=== PATIENT | female | born 1985 | race Caucasian/White ===

== ENCOUNTER → 2017-07-15 16:33 | Outpatient (CLI) | payer OTHER, SELFPAY ==
[2017-07-15 16:52] LABS: Basophils % 0.2 % (0.1-2.0); Eosinophils # 0.1 K/mm3 (0.0-0.4); Eosinophils % 1.2 % (0.1-12.0); Hematocrit 37.3 % (37.0-47.0); Hemoglobin 12.6 g/dL (12.2-16.2); Lymphocytes # 1.2 K/mm3 (0.7-4.5); Lymphocytes % 22.3 K/mm3 (10-50); Mean Corpuscular HGB Conc 33.8 g/dL (31.8-35.4); Mean Corpuscular Hemoglobin 32.1 pg (27.0-31.2); Mean Platelet Volume 8.6 fl (7.4-10.4); Monocytes # 0.3 K/mm3 (0.1-1.0); Monocytes % 4.6 % (1.7-9.3); Neutrophils % 71.7 % (37.0-80.0); Platelet Count 246 K/mm3 (142-424); Red Blood Count 3.93 M/mm3 (4.20-5.40); Red Cell Distribution Width 13.2 % (11.5-17.5); White Blood Count 5.5 K/mm3 (4.8-10.8)
[2017-07-15 18:03] LABS: Alanine Aminotransferase 21 U/L (12-78); Albumin/Globulin Ratio 1.3 (1.1-1.8); Alkaline Phosphatase 62 U/L (46-116); Anion Gap 10.1 mEq/L (5-15); Aspartate Amino Transferase 11 U/L (15-37); Bilirubin,Total 0.2 mg/dL (0.2-1.0); Blood Urea Nitrogen 12 mg/dL (7-18); Calcium 8.6 mg/dL (8.5-10.1); Carbon Dioxide 32 mmol/L (21.0-32.0); Chloride 105 mmol/L (98-107); Creatinine,Serum 0.72 mg/dL (0.55-1.02); Estimated Glomerular Filt Rate 96 ml/min (>60); GFR (African American) 116 ML/MIN (>60); Globulin 3.1 gm/dl (1.3-3.2); Glucose 105 mg/dL (74-106); Potassium 4.1 mmoL/L (3.5-5.1); Sodium 143 mmol/L (136-145); Total Protein,Serum 7.1 gm/dL (6.4-8.2)
[2017-07-15 18:14] LABS: HCG Qualitative, Serum Negative (Negative)
== END ==
PROVIDERS: PCP Internal Medicine Adolescent Medicine; Visit Provider Nurse Practitioner Obstetrics & Gynecology
DX: N92.0 Excessive and frequent menstruation with regular cycle (principal); Z01.818 Encounter for other preprocedural examination
CPT/HCPCS: 36415; 80053; 84703; 85025

== ENCOUNTER 2017-07-18 08:28 | Day surgery (SDC) | payer OTHER, SELFPAY ==
[2017-07-15 16:02] VITALS: BMI 22.8
[2017-07-18] VITALS (12 sets, daily range): BP systolic 116–147; BP diastolic 76–105; PULSE 69–91; RESP 13–18; TEMP 36.1–43; O2SAT 93–100
--- NOTE | 2017-07-18 09:32 | P.PN_ITS ---
[facility] Anesthesia Checklist - Patient Identification Patient Identification: Arm Band, Verbal (Name & ) - Structural Data Admitted From: Home Planned Operative Procedure/s: dand c, salpingectomy Consent for Planned Operative Procedure(s) Verified: Yes Verified Documents: Surgical Consent - Chart Verification Results Verified: CBC, BMP - Additional verifications Patient : No Anesthesia Reactions: No Hx Blood Transfusions: No Blood Transfusion Reaction: No Cephalosporin Allergy: No Previous Colonoscopy: No - Cardiovascular Assessment Heart Sounds: S1 & S2 Pulse Strength: Baseline Pulse Rhythm: Regular Peripheral Edema: No - Airway Assessment C-Spine Mobility Assessed: Yes TMJ Mobility Assessed: Yes Dentition: Good Dentition - Neurological Assessment Level of Consciousness: Awake, Alert, Appropriate Hx Seizures: No Numbness or tingling in extremities: No - Anesthesia Plan Anesthesia Risk discussed: Yes Anesthesia Plan: Verified ASA Class: I Anesthesia Type: General [facility] Anesthesia HX Medical History: Denies:: Cancer, Diabetes Mellitus Type 1, Diabetes Mellitus Type 2, MRSA Other Surgeries: Yes: No Previous Surgery Amputation: No Fractures: No *Family Hx:: Cancer, Coronary Artery Disease, Diabetes, Heart Attack, Hyperlipidemia, Hypertension
--- NOTE | 2017-07-18 10:42 | HMH.OPNOTE ---
Date of procedure: 07/18/17 Pre-op Diagnosis:: Desire for sterilization, menorrhagia, removal of IUD Post-op diagnosis:: same Procedure performed:: Laparoscopic bilateral salpingectomy, hysteroscopy, D&C, removal of IUD Surgeon:: Ivan Holliday MD INSULATION ESTIMATOR:: Tom Shookty Anesthesia: GETA Estimated blood loss (mL): 50 Clinical Note:: She is a 31-year-old lady who complains of extremely heavy periods. She also expressed desire for sterilization. The risks and benefits of surgery as well as the irreversibility of bilateral salpingectomy were discussed with the patient prior to surgery. Operative findings:: She had a normal-appearing pelvis. The uterus is anteverted normal in shape and size. The tubes were followed to their fimbriated end appeared normal. The ovaries appeared normal. The appendix was visualized appeared normal. The upper abdomen appeared normal as well. The deep pelvis appear normal. At the time of hysteroscopy the immature cavity appeared somewhat erythematous possibly consistent with chronic endometritis. Operative note:: She was taken to the operating room where general anesthesia was found be adequate. She was prepped and draped in normal sterile fashion in the semilithotomy position. A weighted speculum was placed in vagina and the anterior lip of the cervix was grasped with a tenaculum. I then grasped the IUD strings and was able to easily remove the IUD. I then dilated the cervix to approximately 3 mm and inserted a Heather uterine manipulator into the uterine cavity. I then changed gloves and injected 10 cc of 0.5% ropivacaine around the umbilicus. I made a small incision within the umbilicus and inserted a Veress needle into the abdominal cavity. The abdominal cavity was then insufflated with carbon dioxide gas to a pressure of 20 mmHg. I then inserted a 5 mm trocar under direct vision. I injected through and through the pubic hairline, made a small incision here and inserted a 8 mm trocar under direct vision. I identified the inferior epigastric arteries on the left side, went lateral to these and injected through and through. I inserted a 5 trocar here under direct vision. The right tube was then grasped close to the cornea and cauterized across at the cornua. I then grasped the distal end of the right tube and using harmonic scalpel I cut across the mesosalpinx removing the tube. This is simply performed on the patient's left side. The tubes were removed through the 8 mm trocar site. I then let the gas out of the abdomen once again assured hemostasis. The secondary trochars were then removed under direct vision and the sites were hemostatic. The gas was let out of the abdomen completely and the primary trocar was removed. The 5 mm trocar sites were then closed with subcuticular 4-0 Monocryl suture. The 8 mm trocar site was closed with deep 2-0 Vicryl suture followed by interrupted septic therefore Monocryl suture. Sterile dressings were applied. The patient was then placed in lithotomy position and a weighted speculum was placed in the vagina. The anterior lip of the cervix was grasped with a tenaculum and a hysteroscope was inserted into the uterine cavity. The findings are as previous dictated. We then sounded the uterus and the length of the uterus was found to be 7 cm. The endometrial cavity was 5 cm. The NovaSure device was then placed within the uterine cavity and the width was 3.6 cm. These values were placed into the NovaSure device. It was run through its program. I then further inspected the endometrial cavity and it seemed to be completely charred. I injected 30 cc of 0.5% ropivacaine at the 3:00, 5:00, 7:00, and 9:00 positions of the cervix. The patient tolerated the procedure well and was taken to the recovery room in excellent condition. All sponge instrument and needle counts were correct. The estimated was was less than 50 cc. Condition: stable Disposition: PACU Specimens::
--- NOTE | 2017-07-18 10:49 | P.OP_ITS ---
Date of procedure: 07/18/17 Pre-op Diagnosis:: Desire for sterilization, menorrhagia, removal of IUD Post-op diagnosis:: same Procedure performed:: Laparoscopic bilateral salpingectomy, hysteroscopy, D&C, removal of IUD Surgeon:: Ivan Holliday MD MARKETING PROJECT MANAGER:: Tom Shookty Anesthesia: GETA Estimated blood loss (mL): 50 Clinical Note:: She is a 31-year-old lady who complains of extremely heavy periods. She also expressed desire for sterilization. The risks and benefits of surgery as well as the irreversibility of bilateral salpingectomy were discussed with the patient prior to surgery. Operative findings:: She had a normal-appearing pelvis. The uterus is anteverted normal in shape and size. The tubes were followed to their fimbriated end appeared normal. The ovaries appeared normal. The appendix was visualized appeared normal. The upper abdomen appeared normal as well. The deep pelvis appear normal. At the time of hysteroscopy the immature cavity appeared somewhat erythematous possibly consistent with chronic endometritis. Operative note:: She was taken to the operating room where general anesthesia was found be adequate. She was prepped and draped in normal sterile fashion in the semilithotomy position. A weighted speculum was placed in vagina and the anterior lip of the cervix was grasped with a tenaculum. I then grasped the IUD strings and was able to easily remove the IUD. I then dilated the cervix to approximately 3 mm and inserted a Heather uterine manipulator into the uterine cavity. I then changed gloves and injected 10 cc of 0.5% ropivacaine around the umbilicus. I made a small incision within the umbilicus and inserted a Veress needle into the abdominal cavity. The abdominal cavity was then insufflated with carbon dioxide gas to a pressure of 20 mmHg. I then inserted a 5 mm trocar under direct vision. I injected through and through the pubic hairline, made a small incision here and inserted a 8 mm trocar under direct vision. I identified the inferior epigastric arteries on the left side, went lateral to these and injected through and through. I inserted a 5 trocar here under direct vision. The right tube was then grasped close to the cornea and cauterized across at the cornua. I then grasped the distal end of the right tube and using harmonic scalpel I cut across the mesosalpinx removing the tube. This is simply performed on the patient's left side. The tubes were removed through the 8 mm trocar site. I then let the gas out of the abdomen once again assured hemostasis. The secondary trochars were then removed under direct vision and the sites were hemostatic. The gas was let out of the abdomen completely and the primary trocar was removed. The 5 mm trocar sites were then closed with subcuticular 4-0 Monocryl suture. The 8 mm trocar site was closed with deep 2- 0 Vicryl suture followed by interrupted septic therefore Monocryl suture. Sterile dressings were applied. The patient was then placed in lithotomy position and a weighted speculum was placed in the vagina. The anterior lip of the cervix was grasped with a tenaculum and a hysteroscope was inserted into the uterine cavity. The findings are as previous dictated. We then sounded the uterus and the length of the uterus was found to be 7 cm. The endometrial cavity was 5 cm. The NovaSure device was then placed within the uterine cavity and the width was 3.6 cm. These values were placed into the NovaSure device. It was run through its program. I then further inspected the endometrial cavity and it seemed to be completely charred. I injected 30 cc of 0.5% ropivacaine at the 3:00, 5:00, 7:00, and 9:
--- NOTE | 2017-07-18 10:55 | HMH.ANESI ---
[facility] Anesthesia Record Part I Intake, IV Amount: 800 Estimated blood loss (mL): 49 Urine output (mL): 0 Blood Products used (#): none Blood Pressure: 134/94 SaO2: 99 Pulse Rate: 80 Respiratory Rate: 18 Temperature: 98.0 F Patient is:: Drowsy, Stable Stable to PACU at:: 10:52
--- NOTE | 2017-07-18 10:56 | P.PN_ITS ---
[facility] Anesthesia Record Part II Discharge Time: 11:22 Destination: Surgical Day Care (OP Surgery) PACU nurse assessment reviewed?: Yes Patient Condition:: Good Anesthesia Complications:: None
== END 2017-07-18 12:15 | disposition home or self-care (01) ==
LOC: OR 08:30
PROVIDERS: Family Provider Internal Medicine Adolescent Medicine; PCP Internal Medicine Adolescent Medicine; Visit Provider Nurse Practitioner Obstetrics & Gynecology
PROC: (CPT 58661; principal; 2017-07-18 10:15)
PROC: 0U5B8ZZ Destruction of Endometrium, Via Natural or Artificial Opening Endoscopic (ICD-10-PCS; CPT 58563; 2017-07-18 10:15)
DX: N92.0 Excessive and frequent menstruation with regular cycle (principal); Z30.2 Encounter for sterilization; Z30.432 Encounter for removal of intrauterine contraceptive device
CPT/HCPCS: 58661; 58558; 58562; J0131; J2405; J2710

== ENCOUNTER → 2019-05-05 09:23 | Outpatient (CLI) | payer OTHER, SELFPAY ==
--- NOTE | 2019-05-05 09:43 | XR_ITS ---
PROCEDURE: XR COCCYX 2V CLINICAL INDICATION: FALL Posttraumatic pain COMPARISON: No exams were available for comparison FINDINGS: There is anterior angulation of the tip of the coccyx which could be posttraumatic. No other significant anomalies are evident. IMPRESSION: Anterior angulation of the tip of the coccyx by approximately 90 degrees. This could be posttraumatic or developmental Dictated by: Alton Kiran MD 05/05/2019 16:42 Electronically signed by Alton Kiran MD in [place] 05/05/2019 16:42
== END ==
PROVIDERS: PCP Internal Medicine Adolescent Medicine; Visit Provider Orthopaedic Surgery
DX: M53.3 Sacrococcygeal disorders, not elsewhere classified (principal)
CPT/HCPCS: 72220

== ENCOUNTER → 2019-11-02 16:59 | Outpatient (CLI) | payer OTHER, SELFPAY ==
[2019-11-02 19:59] LABS: Thyroid Stimulating Hormone 0.44 uIU/mL (0.465-4.68)
[2019-11-04 09:13] LABS: Vitamin B12 1076 pg/mL (232-1245)
== END ==
PROVIDERS: Visit Provider Nurse Practitioner Family
DX: K12.1 Other forms of stomatitis (principal)
CPT/HCPCS: 36415; 82607; 84443

== ENCOUNTER → 2019-11-04 08:43 | Outpatient (CLI) | payer OTHER, SELFPAY ==
[2019-11-04 11:14] LABS: Free T4 (Free Thyroxine) 0.87 ng/dl (0.78-2.19)
[2019-11-04 11:27] LABS: Thyroid Stimulating Hormone 0.89 uIU/mL (0.465-4.68)
[2019-11-05 11:16] LABS: Thyroid Peroxidase Antibodies <9 IU/mL (0-34)
[2019-11-05 11:18] LABS: Triiodothyronine (T3) Free 2.7 pg/mL (2.0-4.4)
[2019-11-06 09:27] LABS: Thyroid Stimulating Immunoglob <0.10 IU/L (0.00-0.55)
== END ==
PROVIDERS: Visit Provider Otolaryngology
DX: E05.90 Thyrotoxicosis, unspecified without thyrotoxic crisis or storm (principal)
CPT/HCPCS: 36415; 84439; 84443; 84445; 84481; 86376

== ENCOUNTER → 2019-11-23 15:51 | Outpatient (POV) | payer OTHER, SELFPAY | PROVIDERS: PCP Family Medicine; Visit Provider Physician Assistant | DX: Z00.00 Encounter for general adult medical examination without abnormal findings (principal) ==

== ENCOUNTER → 2020-01-25 11:09 | Outpatient (POV) | payer OTHER, SELFPAY | PROVIDERS: Visit Provider Dermatology | DX: Z00.00 Encounter for general adult medical examination without abnormal findings (principal) ==

== ENCOUNTER → 2020-02-28 09:01 | Outpatient (CLI) | payer OTHER, SELFPAY ==
[2020-02-28 09:25] LABS: Basophils % 0.3 % (0.1-2.0); Eosinophils % 0.8 % (0.1-12.0); Hematocrit 38.5 % (37.0-47.0); Hemoglobin 12.8 g/dL (12.2-16.2); Lymphocytes # 1.4 K/mm3 (0.7-4.5); Lymphocytes % 25.6 % (10-50); Mean Corpuscular HGB Conc 33.2 g/dL (31.8-35.4); Mean Corpuscular Hemoglobin 32.5 pg (27.0-31.2); Mean Corpuscular Volume 97.8 fl (81-99); Mean Platelet Volume 8.3 fl (7.4-10.4); Monocytes # 0.2 K/mm3 (0.1-1.0); Monocytes % 4.4 % (1.7-9.3); Neutrophils # 3.6 K/mm3 (1.8-7.8); Neutrophils % 68.9 % (37.0-80.0); Platelet Count 207 K/mm3 (142-424); Red Blood Count 3.94 M/mm3 (4.20-5.40); Red Cell Distribution Width 13.1 % (11.5-17.5); White Blood Count 5.3 K/mm3 (4.8-10.8)
[2020-02-28 10:25] LABS: Alanine Aminotransferase 12 U/L (12-78); Albumin Level 4.4 g/dl (3.5-5.0); Albumin/Globulin Ratio 1.7 (1.1-1.8); Alkaline Phosphatase 45 U/L (38-126); Anion Gap 10.4 mEq/L (5-15); Aspartate Amino Transferase 22 U/L (14-36); Bilirubin,Total 0.3 mg/dl (0.2-1.3); Blood Urea Nitrogen 9 mg/dl (7-17); Calcium 9.7 mg/dl (8.4-10.2); Carbon Dioxide 31 mmol/L (22.0-30.0); Chloride 101 mmol/L (98-107); Chol/HDL Ratio 2.8 (1-3.5); Cholesterol 155 mg/dl (140-200); Estimated Glomerular Filt Rate 143 ml/min (>60); GFR (African American) 173 ML/MIN (>60); Globulin 2.6 g/dL (1.3-3.2); Glucose 103 mg/dl (74-100); HDL Cholesterol 56 mg/dl (40-60); Potassium 4.4 mmoL/L (3.5-5.1); Sodium 138 mmol/L (136-145); Triglycerides 69 mg/dl (30-150); VLDL Cholesterol 14 mg/dL (0-40)
[2020-02-28 10:37] LABS: Direct LDL Cholesterol 85.04 mg/dL (100-129)
[2020-02-28 11:56] LABS: HCG Qualitative, Serum Negative (Negative)
== END ==
PROVIDERS: Visit Provider Dermatology
DX: L70.0 Acne vulgaris (principal); Z79.899 Other long term (current) drug therapy
CPT/HCPCS: 36415; 80053; 80061; 84703; 85025

== ENCOUNTER → 2020-02-29 13:52 | Outpatient (POV) | payer OTHER, SELFPAY | PROVIDERS: Visit Provider Dermatology | DX: Z00.00 Encounter for general adult medical examination without abnormal findings (principal) ==

== ENCOUNTER → 2020-04-03 09:05 | Outpatient (CLI) | payer OTHER, SELFPAY ==
[2020-04-03 11:01] LABS: Chloride 101 mmol/L (98-107); Sodium 137 mmol/L (136-145)
[2020-04-03 11:02] LABS: Potassium 4.3 mmoL/L (3.5-5.1)
[2020-04-03 11:04] LABS: Alanine Aminotransferase 14 U/L (12-78); Albumin Level 4.5 g/dl (3.5-5.0); Albumin/Globulin Ratio 1.7 (1.1-1.8); Alkaline Phosphatase 39 U/L (38-126); Anion Gap 13.3 mEq/L (5-15); Aspartate Amino Transferase 25 U/L (14-36); Bilirubin,Total 0.3 mg/dl (0.2-1.3); Blood Urea Nitrogen 16 mg/dl (7-17); Carbon Dioxide 27 mmol/L (22.0-30.0); Cholesterol 218 mg/dl (140-200); Estimated Glomerular Filt Rate 116 ml/min (>60); GFR (African American) 140 ML/MIN (>60); Globulin 2.6 g/dL (1.3-3.2); Total Protein,Serum 7.1 g/dl (6.3-8.2); Triglycerides 80 mg/dl (30-150); VLDL Cholesterol 16 mg/dL (0-40)
[2020-04-03 11:05] LABS: Calcium 9.4 mg/dl (8.4-10.2); Chol/HDL Ratio 4.4 (1-3.5); Glucose 88 mg/dl (74-100); HDL Cholesterol 50 mg/dl (40-60)
[2020-04-03 11:15] LABS: Direct LDL Cholesterol 134.26 mg/dL (100-129)
[2020-04-03 11:30] LABS: Basophils % 0.6 % (0.1-2.0); Eosinophils % 0.7 % (0.1-12.0); Hemoglobin 13.2 g/dL (12.2-16.2); Lymphocytes # 1.4 K/mm3 (0.7-4.5); Lymphocytes % 28.7 % (10-50); Mean Corpuscular HGB Conc 33.8 g/dL (31.8-35.4); Mean Corpuscular Hemoglobin 32.1 pg (27.0-31.2); Mean Corpuscular Volume 94.9 fl (81-99); Mean Platelet Volume 7.8 fl (7.4-10.4); Monocytes # 0.2 K/mm3 (0.1-1.0); Monocytes % 4.7 % (1.7-9.3); Neutrophils # 3.1 K/mm3 (1.8-7.8); Neutrophils % 65.4 % (37.0-80.0); Platelet Count 271 K/mm3 (142-424); Red Blood Count 4.11 M/mm3 (4.20-5.40); Red Cell Distribution Width 13.4 % (11.5-17.5); White Blood Count 4.8 K/mm3 (4.8-10.8)
[2020-04-03 13:49] LABS: HCG Qualitative, Serum Negative (Negative)
== END ==
PROVIDERS: Visit Provider Dermatology
DX: L70.0 Acne vulgaris (principal); Z79.899 Other long term (current) drug therapy
CPT/HCPCS: 36415; 80053; 80061; 84703; 85025

== ENCOUNTER → 2020-04-04 15:46 | Outpatient (POV) | payer OTHER, SELFPAY | PROVIDERS: Visit Provider Dermatology | DX: Z00.00 Encounter for general adult medical examination without abnormal findings (principal) ==

== ENCOUNTER → 2020-05-01 10:58 | Outpatient (CLI) | payer OTHER, SELFPAY ==
[2020-05-01 11:08] LABS: Basophils % 0.4 % (0.1-2.0); Eosinophils % 0.3 % (0.1-12.0); Hematocrit 39.7 % (37.0-47.0); Hemoglobin 13.7 g/dL (12.2-16.2); Lymphocytes # 1.4 K/mm3 (0.7-4.5); Lymphocytes % 29.2 % (10-50); Mean Corpuscular HGB Conc 34.5 g/dL (31.8-35.4); Mean Corpuscular Hemoglobin 32.7 pg (27.0-31.2); Mean Corpuscular Volume 94.7 fl (81-99); Mean Platelet Volume 7.6 fl (7.4-10.4); Monocytes # 0.2 K/mm3 (0.1-1.0); Monocytes % 3.6 % (1.7-9.3); Neutrophils # 3.3 K/mm3 (1.8-7.8); Neutrophils % 66.5 % (37.0-80.0); Platelet Count 235 K/mm3 (142-424); Red Cell Distribution Width 13.5 % (11.5-17.5); White Blood Count 4.9 K/mm3 (4.8-10.8)
[2020-05-01 11:11] LABS: Chloride 101 mmol/L (98-107); Potassium 4.2 mmoL/L (3.5-5.1); Sodium 138 mmol/L (136-145)
[2020-05-01 11:14] LABS: Alanine Aminotransferase 20 U/L (12-78); Albumin Level 5.3 g/dl (3.5-5.0); Albumin/Globulin Ratio 1.5 (1.1-1.8); Alkaline Phosphatase 54 U/L (38-126); Anion Gap 13.2 mEq/L (5-15); Aspartate Amino Transferase 34 U/L (14-36); Bilirubin,Total 0.5 mg/dl (0.2-1.3); Blood Urea Nitrogen 17 mg/dl (7-17); Carbon Dioxide 28 mmol/L (22.0-30.0); Cholesterol 256 mg/dl (140-200); Estimated Glomerular Filt Rate 97 ml/min (>60); GFR (African American) 117 ML/MIN (>60); Globulin 3.5 g/dL (1.3-3.2); Total Protein,Serum 8.8 g/dl (6.3-8.2); Triglycerides 125 mg/dl (30-150); VLDL Cholesterol 25 mg/dL (0-40)
[2020-05-01 11:15] LABS: Chol/HDL Ratio 4.4 (1-3.5); Glucose 100 mg/dl (74-100); HDL Cholesterol 58 mg/dl (40-60)
[2020-05-01 11:26] LABS: Direct LDL Cholesterol 139.29 mg/dL (100-129)
[2020-05-01 12:16] LABS: HCG Qualitative, Serum Negative (Negative)
== END ==
PROVIDERS: Visit Provider Dermatology
DX: L70.0 Acne vulgaris (principal); Z79.899 Other long term (current) drug therapy
CPT/HCPCS: 80053; 80061; 84703; 85025

== ENCOUNTER → 2020-05-02 12:57 | Outpatient (POV) | payer OTHER, SELFPAY | PROVIDERS: Visit Provider Dermatology | DX: Z00.00 Encounter for general adult medical examination without abnormal findings (principal) ==

== ENCOUNTER → 2020-06-05 11:16 | Outpatient (CLI) | payer OTHER, SELFPAY ==
[2020-06-05 13:01] LABS: Coronavirus 19 IgG Antibody Positive (Negative); Coronavirus 19 IgM Antibody Negative (Negative)
[2020-06-05 16:02] LABS: Basophils % 0.7 % (0.1-2.0); Eosinophils % 0.6 % (0.1-12.0); Hematocrit 43.2 % (37.0-47.0); Lymphocytes # 1.7 K/mm3 (0.7-4.5); Lymphocytes % 31.5 % (10-50); Mean Corpuscular HGB Conc 32.4 g/dL (31.8-35.4); Mean Corpuscular Hemoglobin 32.2 pg (27.0-31.2); Mean Corpuscular Volume 99.3 fl (81-99); Mean Platelet Volume 8.3 fl (7.4-10.4); Monocytes # 0.2 K/mm3 (0.1-1.0); Monocytes % 4.1 % (1.7-9.3); Neutrophils # 3.3 K/mm3 (1.8-7.8); Neutrophils % 63.1 % (37.0-80.0); Platelet Count 279 K/mm3 (142-424); Red Blood Count 4.35 M/mm3 (4.20-5.40); Red Cell Distribution Width 13.8 % (11.5-17.5); White Blood Count 5.2 K/mm3 (4.8-10.8)
[2020-06-05 16:06] LABS: Chloride 102 mmol/L (98-107)
[2020-06-05 16:07] LABS: Potassium 4.2 mmoL/L (3.5-5.1); Sodium 140 mmol/L (136-145)
[2020-06-05 16:09] LABS: Alanine Aminotransferase 18 U/L (12-78); Aspartate Amino Transferase 30 U/L (14-36); Blood Urea Nitrogen 14 mg/dl (7-17); Estimated Glomerular Filt Rate 97 ml/min (>60); GFR (African American) 117 ML/MIN (>60)
[2020-06-05 16:10] LABS: Albumin Level 5.1 g/dl (3.5-5.0); Albumin/Globulin Ratio 1.5 (1.1-1.8); Alkaline Phosphatase 50 U/L (38-126); Anion Gap 14.2 mEq/L (5-15); Bilirubin,Total 0.4 mg/dl (0.2-1.3); Calcium 9.9 mg/dl (8.4-10.2); Carbon Dioxide 28 mmol/L (22.0-30.0); Chol/HDL Ratio 4.6 (1-3.5); Cholesterol 244 mg/dl (140-200); Globulin 3.5 g/dL (1.3-3.2); Glucose 92 mg/dl (74-100); HDL Cholesterol 53 mg/dl (40-60); Total Protein,Serum 8.6 g/dl (6.3-8.2); Triglycerides 80 mg/dl (30-150); VLDL Cholesterol 16 mg/dL (0-40)
[2020-06-05 16:21] LABS: Direct LDL Cholesterol 132.08 mg/dL (100-129)
[2020-06-05 16:46] LABS: HCG Qualitative, Serum Negative (Negative)
== END ==
PROVIDERS: Physician Assistant; Visit Provider Surgery
DX: Z86.16 Personal history of COVID-19 (principal); L70.0 Acne vulgaris; Z79.899 Other long term (current) drug therapy
CPT/HCPCS: 80053; 80061; 84703; 85025; 86328

== ENCOUNTER → 2020-06-13 14:18 | Outpatient (POV) | payer OTHER, SELFPAY | PROVIDERS: Visit Provider Dermatology | DX: Z00.00 Encounter for general adult medical examination without abnormal findings (principal) ==

== ENCOUNTER → 2020-07-10 09:37 | Outpatient (CLI) | payer OTHER, SELFPAY ==
[2020-07-10 09:50] LABS: Basophils % 0.6 % (0.1-2.0); Eosinophils % 0.8 % (0.1-12.0); Hemoglobin 14.2 g/dL (12.2-16.2); Lymphocytes # 1.4 K/mm3 (0.7-4.5); Lymphocytes % 32.2 % (10-50); Mean Corpuscular HGB Conc 33.7 g/dL (31.8-35.4); Mean Corpuscular Hemoglobin 31.9 pg (27.0-31.2); Mean Corpuscular Volume 94.6 fl (81-99); Mean Platelet Volume 7.7 fl (7.4-10.4); Monocytes # 0.2 K/mm3 (0.1-1.0); Monocytes % 4.2 % (1.7-9.3); Neutrophils # 2.8 K/mm3 (1.8-7.8); Neutrophils % 62.3 % (37.0-80.0); Platelet Count 250 K/mm3 (142-424); Red Blood Count 4.44 M/mm3 (4.20-5.40); Red Cell Distribution Width 13.1 % (11.5-17.5); White Blood Count 4.5 K/mm3 (4.8-10.8)
[2020-07-10 09:52] LABS: Chloride 102 mmol/L (98-107); Sodium 140 mmol/L (136-145)
[2020-07-10 09:53] LABS: Potassium 3.8 mmoL/L (3.5-5.1)
[2020-07-10 09:55] LABS: Alanine Aminotransferase 17 U/L (12-78); Albumin Level 5.3 g/dl (3.5-5.0); Albumin/Globulin Ratio 1.4 (1.1-1.8); Alkaline Phosphatase 53 U/L (38-126); Anion Gap 12.8 mEq/L (5-15); Aspartate Amino Transferase 30 U/L (14-36); Bilirubin,Total 0.4 mg/dl (0.2-1.3); Blood Urea Nitrogen 14 mg/dl (7-17); Carbon Dioxide 29 mmol/L (22.0-30.0); Cholesterol 259 mg/dl (140-200); Estimated Glomerular Filt Rate 83 ml/min (>60); GFR (African American) 101 ML/MIN (>60); Globulin 3.7 g/dL (1.3-3.2); Triglycerides 105 mg/dl (30-150); VLDL Cholesterol 21 mg/dL (0-40)
[2020-07-10 09:56] LABS: Calcium 10.1 mg/dl (8.4-10.2); Chol/HDL Ratio 4.8 (1-3.5); Glucose 99 mg/dl (74-100); HDL Cholesterol 54 mg/dl (40-60)
[2020-07-10 10:39] LABS: HCG Qualitative, Serum Negative (Negative)
== END ==
PROVIDERS: Visit Provider Dermatology
DX: L70.0 Acne vulgaris (principal); Z79.899 Other long term (current) drug therapy
CPT/HCPCS: 80053; 80061; 84703; 85025

== ENCOUNTER → 2020-08-07 07:58 | Outpatient (CLI) | payer OTHER, SELFPAY ==
[2020-08-07 08:18] LABS: Basophils % 0.6 % (0.1-2.0); Eosinophils % 0.7 % (0.1-12.0); Hematocrit 41.5 % (37.0-47.0); Hemoglobin 13.4 g/dL (12.2-16.2); Lymphocytes # 1.6 K/mm3 (0.7-4.5); Lymphocytes % 28.7 % (10-50); Mean Corpuscular HGB Conc 32.3 g/dL (31.8-35.4); Mean Corpuscular Hemoglobin 31.4 pg (27.0-31.2); Mean Corpuscular Volume 97.3 fl (81-99); Mean Platelet Volume 7.9 fl (7.4-10.4); Monocytes # 0.2 K/mm3 (0.1-1.0); Monocytes % 4.2 % (1.7-9.3); Neutrophils # 3.6 K/mm3 (1.8-7.8); Neutrophils % 65.8 % (37.0-80.0); Platelet Count 257 K/mm3 (142-424); Red Blood Count 4.26 M/mm3 (4.20-5.40); Red Cell Distribution Width 13.5 % (11.5-17.5); White Blood Count 5.5 K/mm3 (4.8-10.8)
[2020-08-07 08:26] LABS: Alanine Aminotransferase 20 U/L (12-78); Albumin Level 5.2 g/dl (3.5-5.0); Albumin/Globulin Ratio 1.5 (1.1-1.8); Alkaline Phosphatase 52 U/L (38-126); Aspartate Amino Transferase 28 U/L (14-36); Bilirubin,Total 0.3 mg/dl (0.2-1.3); Blood Urea Nitrogen 13 mg/dl (7-17); Calcium 9.9 mg/dl (8.4-10.2); Carbon Dioxide 29 mmol/L (22.0-30.0); Chloride 101 mmol/L (98-107); Chol/HDL Ratio 3.8 (1-3.5); Cholesterol 246 mg/dl (140-200); Estimated Glomerular Filt Rate 116 ml/min (>60); GFR (African American) 140 ML/MIN (>60); Globulin 3.5 g/dL (1.3-3.2); Glucose 104 mg/dl (74-100); HDL Cholesterol 64 mg/dl (40-60); Sodium 138 mmol/L (136-145); Total Protein,Serum 8.7 g/dl (6.3-8.2); Triglycerides 83 mg/dl (30-150); VLDL Cholesterol 17 mg/dL (0-40)
[2020-08-07 08:37] LABS: Direct LDL Cholesterol 131.12 mg/dL (100-129)
[2020-08-07 08:41] LABS: HCG Qualitative, Serum Negative (Negative)
== END ==
PROVIDERS: Visit Provider Dermatology
DX: L70.0 Acne vulgaris (principal); Z79.899 Other long term (current) drug therapy
CPT/HCPCS: 80053; 80061; 84703; 85025

== ENCOUNTER → 2020-08-08 10:34 | Outpatient (POV) | payer OTHER, SELFPAY | PROVIDERS: Visit Provider Dermatology | DX: Z00.00 Encounter for general adult medical examination without abnormal findings (principal) ==

== ENCOUNTER → 2020-09-05 10:50 | Outpatient (POV) | payer OTHER, SELFPAY | PROVIDERS: Visit Provider Dermatology | DX: Z00.00 Encounter for general adult medical examination without abnormal findings (principal) ==

== ENCOUNTER → 2020-10-03 11:25 | Outpatient (POV) | payer OTHER, SELFPAY | PROVIDERS: Visit Provider Dermatology | DX: Z00.00 Encounter for general adult medical examination without abnormal findings (principal) ==

== ENCOUNTER → 2020-11-07 10:11 | Outpatient (POV) | payer OTHER, SELFPAY | PROVIDERS: Visit Provider Dermatology | DX: Z00.00 Encounter for general adult medical examination without abnormal findings (principal) ==

== ENCOUNTER → 2021-08-24 10:15 | Outpatient (CLI) | payer SELFPAY ==
--- NOTE | 2021-08-24 10:22 | MM_ITS ---
PROCEDURE INFORMATION: Exam: Bilateral Screening 3D Mammography Exam date and time: 08/24/2021 10:23 AM Age: 35 years old Clinical indication: Screening examination . Family history of breast carcinoma. TECHNIQUE: Imaging protocol: Bilateral Screening tomosynthesis and 2D mammography including computer-aided detection (CAD) when performed. COMPARISON: No relevant prior studies available. FINDINGS: Limitations: Technically difficult exam secondary to positioning. Skin folds overlying the pectoralis muscle on MLO projection persist bilaterally despite multiple attempts. Images are best obtainable. MAMMOGRAPHY: Breast composition: The breasts are heterogeneously dense, which may obscure small masses. Mass: No suspicious masses. Architectural distortion: No suspicious distortion. Calcifications: No suspicious calcifications. Asymmetric density: None. Skin thickening: None. Axillary adenopathy: None. IMPRESSION: No mammographic evidence of malignancy. Annual screening is recommended unless otherwise clinically indicated. ASSESSMENT: BI-RADS Category 2: Benign
== END ==
PROVIDERS: PCP Internal Medicine Adolescent Medicine; Visit Provider Internal Medicine Cardiovascular Disease
DX: Z12.31 Encounter for screening mammogram for malignant neoplasm of breast (principal); Z80.3 Family history of malignant neoplasm of breast
CPT/HCPCS: 77063; 77067